=== PATIENT | female | born 1985 | race Caucasian/White ===

== ENCOUNTER → 2019-04-09 | Outpatient (REF) | payer OTHER | LOC: M LAB REF 15:57 | PROVIDERS: ATTEND Nurse Practitioner Family | DX: R30.0 Dysuria (principal) ==

== ENCOUNTER → 2019-07-21 | Outpatient (REF) | payer OTHER | LOC: M LAB REF 10:40 | PROVIDERS: ATTEND Physician Assistant | DX: N39.0 Urinary tract infection, site not specified (principal) ==

== ENCOUNTER → 2024-03-12 | Outpatient (CLI) | payer OTHER | LOC: M WUC 15:45 | PROVIDERS: ATTEND Student in an Organized Health Care Education/Training Program | DX: R05.9 Cough, unspecified (principal) ==